=== PATIENT | male | born 1990 | race Caucasian/White ===

== ENCOUNTER 2016-10-12 08:33 | Emergency (ER) | payer SELFPAY ==
[2016-10-12 09:09] VITALS: BP 131/81
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
== END 2016-10-12 09:39 | disposition home or self-care (01) ==
LOC: ER 08:33
DX: S00.83XA Contusion of other part of head, initial encounter (principal); S00.01XA Abrasion of scalp, initial encounter; S60.512A Abrasion of left hand, initial encounter; V89.2XXA Person injured in unspecified motor-vehicle accident, traffic, initial encounter; Y92.411 Interstate highway as the place of occurrence of the external cause